=== PATIENT | male | born 1955 | race American Indian/Alaskan Native ===

== ENCOUNTER 2019-06-04 13:47 | Inpatient (IN) | payer OTHER ==
--- NOTE | 2019-06-04 14:01 | Event Note ---
ED Screening Note ED Screening Note: here the other night bph/urinary retention now freq urination and abd pain hr inc from pain PMH HTN BPH RX BP MED IN [place] NO CIG/ETOH/DRUGS This initial assessment/diagnostic orders/clinical plan/treatment(s) is/are subject to change based on patients health status, clinical progression and re-assessment by fellow clinical providers in the ED. Further treatment and workup at subsequent clinical providers discretion. Patient/guardian urged not to elope from the ED as their condition may be serious if not clinically assessed and managed. Initial orders include: ua labs reeval for curry
[2019-06-04 14:47] LABS: Bacteria,Urine 1+ /HPF (Negative); Bilirubin,Urine NEG (Negative); Blood,Urine SM (Negative); Color,Urine Straw (Yellow); Protein,Urine <15 mg/dL mg/dL (Negative); Urobilinogen,Urine < 2.0 mg/dL (<2.0)
[2019-06-04 14:49] LABS: RBC,Urine < 1.0 /HPF (0.0-6.0)
[2019-06-04 15:50] LABS: Hematocrit 41.4 % (35.5-45.6); Hemoglobin 14.6 gm/dl (11.8-15.2); Mean Corpuscular HGB Conc 35 % (32-34); Mean Corpuscular Volume 87 fl (84-94); Platelet Count 234 K/mm3 (140-440); Red Blood Count 4.74 M/mm3 (3.65-5.03); Red Cell Distribution Width 13.2 % (13.2-15.2)
[2019-06-04 15:55] LABS: Calcium 8.9 mg/dL (8.4-10.2)
[2019-06-04 16:38] LABS: Creatinine,Urine 49.7 mg/dL (0.1-20.0)
--- NOTE | 2019-06-04 17:08 | Emergency Department Report ---
ED Abdominal Pain HPI - General Chief Complaint: Urogenital-Male Stated Complaint: URINE RETENTION Time Seen by Provider: 06/04/19 13:47 Source: patient Mode of arrival: Ambulatory Limitations: No Limitations - History of Present Illness Initial Comments: Patient is 63 years old male with history of hypertension and benign prostatic hypertrophy. Patient presented to the ER complaining of lower abdominal pain and distention, increased urinary frequency, urgency and dysuria for the last few days. Patient was seen here 3 days ago and diagnosed with UTI and possible prostatitis. Patient is stated by his symptoms is getting hoarse and last night he was unable to sleep at all. Patient creatinine was 0.9 and today 6.9. Bladder scan showed a 369 mL. With an obvious overflow incontinence patient is wearing a diaper now. Patient denied any fever or chills. Patient also denied any nausea or vomiting. MD Complaint: abdominal pain -: days(s) Location: suprapubic Severity: moderate Severity scale (0 -10): 2 Quality: fullness Consistency: constant Associated Symptoms: denies other symptoms - Related Data Previous Rx's Medication Instructions Recorded Last Taken Type Ciprofloxacin HCl [Ciprofloxacin 500 mg PO Q12HR 14 Days #28 tab 05/31/19 Unknown Rx TAB] Tamsulosin [Flomax] 0.4 mg PO QDAY 14 Days #14 cap 05/31/19 Unknown Rx Allergies Allergy/AdvReac Type Severity Reaction Status Date / Time No Known Allergies Allergy Unverified 05/31/19 17:49 ED Review of Systems ROS: Stated complaint: URINE RETENTION Other details as noted in HPI Comment: All other systems reviewed and negative Constitutional: denies: chills, fever Respiratory: denies: cough, orthopnea, shortness of breath, SOB with exertion, SOB at rest, wheezing Cardiovascular: denies: chest pain, palpitations Gastrointestinal: abdominal pain. denies: nausea, vomiting, diarrhea, constipation, hematemesis, melena, hematochezia Genitourinary: urgency, dysuria, frequency. denies: discharge, testicular pain, testicular mass Musculoskeletal: denies: arthralgia Neurological: denies: headache, weakness, numbness, paresthesias, confusion, abn ormal gait ED Past Medical Hx - Past Medical History Previous Medical History?: Yes Hx Hypertension: Yes Hx CVA: No Hx Heart Attack/AMI: No Hx Congestive Heart Failure: No Hx Diabetes: No Hx Deep Vein Thrombosis: No Hx Pulmonary Embolism: No Hx GERD: No Hx Liver Disease: No Hx Renal Disease: No Hx of Cancer: No Hx Sickle Cell Disease: No Hx Arthritis: No Hx Headaches / Migraines: No Hx Seizures: No Hx Kidney Stones: No Hx Psychiatric Treatment: No Hx Asthma: No Hx COPD: No Hx Tuberculosis: No Hx Dementia: No Hx HIV: No Additional medical history: History of prostatitis - Surgical History Past Surgical History?: No Hx Coronary Stent: No Hx Open Heart Surgery: No Hx Pacemaker: No Hx Internal Defibrillator: No Hx Cholecystectomy: No Hx Appendectomy: No Hx Breast Surgery: No - Social History Smoking Status: Never Smoker Substance Use Type: None - Medications Home Medications: Home Medications Medication Instructions Recorded Confirmed Last Taken Type Ciprofloxacin HCl [Ciprofloxacin 500 mg PO Q12HR 14 Days #28 tab 05/31/19 Unknown Rx TAB] Tamsulosin [Flomax] 0.4 mg PO QDAY 14 Days #14 cap 05/31/19 Unknown Rx ED Physical Exam - General Limitations: No Limitations General appearance: alert, in no apparent distress - Head Head exam: Present: atraumatic, normocephalic, normal inspection - Eye Eye exam: Present: normal appearance, PERRL - ENT ENT exam: Present: normal exam, normal orophraynx, mucous membranes moist - Neck Neck exam: Present: normal inspection, full ROM. Absent: tenderness, meningismus, lymphadenopathy, thyromegaly - Respiratory Respiratory exam: Present: normal lung sounds bilaterally - Cardiovascular Cardiovascular Exam: Present: tachycardia. Absent: systolic murmur, diastolic murmur - GI/Abdominal GI/Abdominal exam: Present: soft, tenderness (suprapubic), normal bowel sounds. Absent: distended, guarding, rebound, rigid, organomegaly, mass, bruit, pulsatile mass, hernia - Extremities Exam Extremities exam: Present: normal inspection, full ROM, normal capillary refill - Back Exam Back exam: Present: normal inspection, full ROM. Absent: CVA tenderness (R), CVA tenderness (L), muscle spasm, paraspinal tenderness, vertebral tenderness - Neurological Exam Neurological exam: Present: alert, oriented X3, CN II-XII intact, normal gait, reflexes normal - Psychiatric Psychiatric exam: Present: normal mood - Skin Skin exam: Present: warm, intact, normal color ED Course Vital Signs 06/04/19 06/04/19 06/04/19 13:51 16:07 16:58 Temperature 97.9 F Pulse Rate 121 H 113 H Respiratory 12 20 18 Rate Blood Pressure 143/98 Blood Pressure 162/96 [Right] O2 Sat by Pulse 96 98 99 Oximetry 06/04/19 18:02 Temperature Pulse Rate 96 H Respiratory 22 Rate Blood Pressure Blood Pressure 153/88 [Right] O2 Sat by Pulse 96 Oximetry ED Medical Decision Making - Lab Data Result diagrams: 06/04/19 15:24 06/04/19 15:24 - Medical Decision Making Patient is 63 years old male with history of hypertension and benign prostatic hypertrophy. Patient presented to the ER complaining of lower abdominal pain and distention, increased urinary frequency, urgency and dysuria for the last few days. Patient was seen here 3 days ago and diagnosed with UTI and possible prostatitis. Patient is stated by his symptoms is getting hoarse and last night he was unable to sleep at all. Patient creatinine was 0.9 and today 6.9. Bladder scan showed a 369 mL. With an obvious overflow incontinence patient is wearing a diaper now. Patient denied any fever or chills. Patient also denied any nausea or vomiting. Velazquez catheter immediately inserted with immediate retain MORE than 1 L. Patient stated that he is feeling much better. I discussed the patient is Dr. Trent from urology stated that he will follow up with the patient. I discussed the patient is Dr. Adams, he agreed to evaluate the patient. Critical Care Time: Yes Critical care time in (mins) excluding proc time.: 30 Critical care attestation.: If time is entered above; I have spent that time in minutes in the direct care of this critically ill patient, excluding procedure time. ED Disposition Clinical Impression: Acute renal failure, Obstructive uropathy Disposition: OP ADMIT IP TO THIS HOSP Is pt being admited?: Yes Condition: Stable Referrals: [facility] [Other] - 3-5 Days
--- NOTE | 2019-06-04 18:03 | Ultrasound Report ---
ULTRASOUND RENAL INDICATION: ABD PAIN, urinary frequency, lack of bladder control, pelvic pain COMPARISON: No relevant prior imaging study available. FINDINGS: RIGHT KIDNEY: Size: 11.5 cm. Echogenicity: Normal. Cortical thickness: Normal. Stones: None. Hydronephrosis: None. Cyst or mass: None. LEFT KIDNEY: Size: 11.8 cm. Echogenicity: Normal. Cortical thickness: Normal. Stones: None. Hydronephrosis: None. Cyst or mass: None. Urinary Bladder: No significant abnormality. Free Fluid: None. Additional Findings: None. IMPRESSION: No acute sonographic abnormality of the kidneys Signer Name: Michael Barr MD Signed: 06/04/2019 5:59 PM Workstation Name: [id number]
[2019-06-04 19:30] LABS: RBC,Urine < 1.0 /HPF (0.0-6.0)
--- NOTE | 2019-06-04 22:12 | History and Physical Report ---
History of Present Illness Date of examination: 06/04/19 History of present illness: 63-year-old man with a history of hypertension, BPH comes to the emergency room disease been unable to urinate since Sunday. Velazquez was placed in the ear, more than 1 L of urine was obtained Review of systems Constitutional: no weight loss, chills, fever Ears, eyes, nose, mouth and throat: no nasal congestion, no nasal discharge, no sinus pressure, no vision change, no red eye. Neck: No neck pain or rigidity. Cardiovascular: no palpitations, chest pain Respiratory: no cough, shortness of breath Gastrointestinal: no hematochezia, abdominal pain Genitourinary : no frequency , no hematuria Musculoskeletal: no joint swelling or muscle ache Integumentary: no rash, no pruritis Neurological: no parathesias, no focal weakness Endocrine: no cold or heat intolerance, no polyuria or polydipsia Hematologic/Lymphatic: no easy bruising, no easy bleeding, no gland swelling Allergic/Immunologic: no urticaria, no angioedema. PAST MEDICAL HISTORY:hypertension, BPH PAST SURGICAL HISTORY: None SOCIAL HISTORY: Denies alcohol, drugs, tobacco FAMILY HISTORY: Hypertension Medications and Allergies Allergies Allergy/AdvReac Type Severity Reaction Status Date / Time No Known Allergies Allergy Unverified 05/31/19 17:49 Home Medications Medication Instructions Recorded Confirmed Last Taken Type Ciprofloxacin HCl [Ciprofloxacin 500 mg PO Q12HR 14 Days #28 tab 05/31/19 06/05/19 06/04/19 Rx TAB] Tamsulosin [Flomax] 0.4 mg PO QDAY 14 Days #14 cap 05/31/19 06/05/19 06/04/19 Rx Exam - Physical Exam Narrative exam: General Apperance: The patient lying in bed, breathing comfortable HEENT: Normocephalic, atraumatic. Pupils equally round and reactive to light, EOMI, no sclericterus or JVD or thyromegaly or nodule. , no carotid bruit, mucous membranes moist, no exudate or erythema Heart: S1-S2, regular is rhythm Lungs: Clear to auscultation bilaterally, breathing comfortable Abdomen: Positive bowel sounds, soft, nontender, nondistended, no organomegaly Extremities: No edema cyanosis clubbing Skin: no rash, nodule, warm and dry Neuro: cranial nerves 2-12 intact, speech is fluent, motor/sensory intact - Constitutional Vitals: Temp Pulse Resp BP Pulse Ox 98.5 F 122 H 20 148/89 95 06/04/19 19:40 06/04/19 21:45 06/04/19 21:45 06/04/19 21:45 06/04/19 21:45 Results - Labs CBC & Chem 7: 06/05/19 04:01 06/06/19 04:48 Labs: Abnormal lab results 06/04/19 06/04/19 06/04/19 Range/Units 15:24 15:24 16:00 MCHC 35 H (32-34) % Sodium 128 L D (137-145) mmol/L Chloride 90.0 L (98-107) mmol/L BUN 59 H (9-20) mg/dL Creatinine 6.9 H D (0.8-1.5) mg/dL Glucose 112 H (75-100) mg/dL Phosphorus (2.5-4.5) mg/dL Urine Creatinine 49.7 H (0.1-20.0) mg/dL 06/04/19 Range/Units 16:08 MCHC (32-34) % Sodium (137-145) mmol/L Chloride (98-107) mmol/L BUN (9-20) mg/dL Creatinine (0.8-1.5) mg/dL Glucose (75-100) mg/dL Phosphorus 6.00 H (2.5-4.5) mg/dL Urine Creatinine (0.1-20.0) mg/dL Assessment and Plan renal Us reviewed Assessment Obstructive uropathy Acute renal failure hypertension BPH Plan Admit to medicine Start IV fluid, urology and renal consulted for the patient DVT prophylaxis
[2019-06-04] MEDS: NACL 0.9% 1000 ML 1,000 ML IV SCH (22:50)
[2019-06-04] MEDS ORDERED: ZOFRAN IV PRN (23:25)
[2019-06-04] MEDS ORDERED: PERCOCET 5/325 PO PRN (23:25)
[2019-06-04] MEDS ORDERED: SODIUM CHLORIDE FLUSH SYRINGE 10 ML IV PRN (23:25)
[2019-06-04] MEDS ORDERED: TYLENOL PO PRN (23:25)
[2019-06-05 05:00] LABS: Basophils % (Auto) 0.1 % (0.0-1.8); Eosinophils # (Auto) 0.1 K/mm3 (0.0-0.4); Eosinophils % (Auto) 0.8 % (0.0-4.3); Hematocrit 41.8 % (35.5-45.6); Hemoglobin 14.7 gm/dl (11.8-15.2); Lymphocytes # (Auto) 0.9 K/mm3 (1.2-5.4); Lymphocytes % (Auto) 10.8 % (13.4-35.0); Mean Corpuscular HGB Conc 35 % (32-34); Mean Corpuscular Volume 87 fl (84-94); Monocytes # (Auto) 1.1 K/mm3 (0.0-0.8); Monocytes % (Auto) 13.9 % (0.0-7.3); Platelet Count 286 K/mm3 (140-440); Red Blood Count 4.78 M/mm3 (3.65-5.03); Red Cell Distribution Width 13.5 % (13.2-15.2)
[2019-06-05 05:20] LABS: Albumin 3.6 g/dL (3.9-5); Calcium 9.1 mg/dL (8.4-10.2)
[2019-06-05] MEDS: NACL 0.9% 1000 ML 1,000 ML IV SCH (07:45)
[2019-06-05] MEDS ORDERED: D5W 1,000 ML IV SCH (08:00)
[2019-06-05] MEDS: SODIUM CHLORIDE FLUSH SYRINGE 10 ML IV SCH (09:23)
--- NOTE | 2019-06-05 09:58 | Consultation ---
History of Present Illness - Reason for Consult Consult date: 06/05/19 acute renal failure, hyponatremia - History of Present Illness The patient is 63 YO male with history significant for Hypertension and BPH who presented to [facility] ER complaining of lower abdominal pain, abd distention and unable to urinate for the past 4-5 days. He also reports urgency but not able to urinate. Patient was seen here 3 days prior and diagnosed with UTI and possible prostatitis. Patient reports that his symptoms has getten worse. Patient creatinine was 0.9 on 05/31 but increased to 6.9 yesterday. Bladder scan showed 369 mL. In the ED curry was inserted with immediate drainage of 1 Lt of urine. Patient is visiting from [facility] No h/o fever, chills, N, V, D, cp, sob, leg swelling or hematuria. Nephrology was consulted for further evaluation. Past History Past Medical History: hypertension, other (BPH) Medications and Allergies Allergies Allergy/AdvReac Type Severity Reaction Status Date / Time No Known Allergies Allergy Unverified 05/31/19 17:49 Home Medications Medication Instructions Recorded Confirmed Last Taken Type Ciprofloxacin HCl [Ciprofloxacin 500 mg PO Q12HR 14 Days #28 tab 05/31/19 06/05/19 06/04/19 Rx TAB] Tamsulosin [Flomax] 0.4 mg PO QDAY 14 Days #14 cap 05/31/19 06/05/19 06/04/19 Rx Active Meds: Active Medications Acetaminophen (Tylenol) 650 mg PO Q4H PRN PRN Reason: Pain MILD(1-3)/Fever >100.5/CONLEY Enoxaparin Sodium (Lovenox) 30 mg SUB-Q QDAY MORGAN Last Admin: 06/05/19 09:22 Dose: 30 mg Documented by: Dextrose (D5w) 1,000 mls @ 75 mls/hr IV DIRECT MORGAN Last Admin: 06/05/19 09:24 Dose: 75 mls/hr Documented by: Ondansetron HCl (Zofran) 4 mg IV Q4H PRN PRN Reason: Nausea And Vomiting Oxycodone/Acetaminophen (Percocet 5/325) 1 tab PO Q6H PRN PRN Reason: Pain, Moderate (4-6) Sodium Chloride (Sodium Chloride Flush Syringe 10 Ml) 10 ml IV BID [facility] Last Admin: 06/05/19 09:23 Dose: 10 ml Documented by: Sodium Chloride (Sodium Chloride Flush Syringe 10 Ml) 10 ml IV PRN PRN PRN Reason: LINE FLUSH Review of Systems Constitutional: no weight loss, no weight gain, no fever, no chills, no anorexia, no fatigue, no weakness Cardiovascular: high blood pressure, no chest pain, no orthopnea, no edema, no syncope, no lightheadedness, no shortness of breath, no leg edema Respiratory: no cough, no excessive sputum, no hemoptysis, no shortness of breath, no dyspnea on exertion Gastrointestinal: abdominal pain, no nausea, no vomiting, no diarrhea, no constipation, no melena, no hematochezia Genitourinary Male: dysuria, urinary frequency, urinary hesitancy, incontinence, urinary retention, no hematuria, no flank pain, no discharge, no kidney stones Rectal: no bleeding Musculoskeletal: no low back pain, no morning stiffness, no muscle weakness, no muscle cramps Integumentary: no rash, no wounds, no jaundice Neurological: no paralysis, no weakness, no numbness, no tingling, no seizures, no syncope, no convulsions, no aphasia, no change in speech, no change in mentation, no confusion, no memory loss Psychiatric: no anxiety, no memory loss, no depression Exam - Vital Signs Vital signs: Vital Signs Temp Pulse Resp BP Pulse Ox 97.9 F 121 H 12 143/98 96 06/04/19 13:51 06/04/19 13:51 06/04/19 13:51 06/04/19 13:51 06/04/19 13:51 - General Appearance General appearance: well-developed, well-nourished, appears stated age, other (no distress) EENT: ATNC, PERRL, mucous membranes moist, hearing intact, vision intact Neck: Present: neck supple, trachea midline Respiratory: Clear to Ascultation Heart: regular, S1S2, no murmurs Gastrointestinal: Present: normoactive bowel sounds, other (curry catheter). Absent: tenderness, distended Integumentary: no rash, warm and dry Neurologic: no focal deficit, no asterixis, alert and oriented x3 Musculoskeletal: Present: other (no edema) Results - Lab Results 06/05/19 04:01 06/05/19 19:44 Most recent lab results Calcium 9.1 mg/dL (8.4-10.2) 06/05/19 04:01 Phosphorus 6.00 mg/dL (2.5-4.5) H 06/04/19 16:08 Magnesium 2.70 mg/dL (1.7-2.3) H 06/05/19 04:01 49.7 mg/dL (0.1-20.0) H 06/04/19 16:00 21 mmol/L 06/04/19 16:00 Assessment and Plan 1. Acute kidney injury: LULU in the setting of bladder outlet obstruction. Renal US was negative for hydro. Renal function is improving. Monitor renal function. Avoid nephrotoxic agents. Meds dosage based on GFR. 2. FEN: Continue IV fluids. IV fluids were changed appropriately based on the sodium level. Monitor lytes. 3. BPH with bladder outlet obstruction: S/p Curry catheter.
[2019-06-05] MEDS ORDERED: LOVENOX SUB-Q SCH (10:00)
--- NOTE | 2019-06-05 11:21 | Progress Note ---
Assessment and Plan Assessment and plan: Acute kidney injury due to obstructive uropathy patient admitted Cr improving now 3.0 from 6.9 Nephrology and Urology following Urinary retention curry inserted Hypernatremia. Recheck in am BPH Hypertension Monitor BP Full code status History Interval history: Abdominal pain urinary retention ` Hospitalist Physical - Physical exam Narrative exam: Gen: Not in acute distress, sitting up in bed, HEENT: Normocephalic, atraumatic Neck: supple, no JVD Heart: S1 and S2 reg, no murmurs, rubs or gallop Lungs: Clear, no crackles or wheeze Abd: soft, non tender, non distended, normal BS Ext:no edema, no clubbing or cyanosis ; curry in place Neuro: Awake,alert,oriented,moves all extremities - Constitutional Vitals: Temp Pulse Resp BP Pulse Ox 99.4 F 101 H 24 143/77 94 06/05/19 08:54 06/05/19 08:54 06/05/19 08:54 06/05/19 08:54 06/05/19 08:54 Results - Labs CBC & Chem 7: 06/05/19 04:01 06/05/19 04:01 Labs: Laboratory Last Values WBC 8.2 K/mm3 (4.5-11.0) 06/05/19 04:01 RBC 4.78 M/mm3 (3.65-5.03) 06/05/19 04:01 Hgb 14.7 gm/dl (11.8-15.2) 06/05/19 04:01 Hct 41.8 % (35.5-45.6) 06/05/19 04:01 MCV 87 fl (84-94) 06/05/19 04:01 MCH 31 pg (28-32) 06/05/19 04:01 MCHC 35 % (32-34) H 06/05/19 04:01 RDW 13.5 % (13.2-15.2) 06/05/19 04:01 Plt Count 286 K/mm3 (140-440) 06/05/19 04:01 Lymph % (Auto) 10.8 % (13.4-35.0) L 06/05/19 04:01 [place] % (Auto) 13.9 % (0.0-7.3) H 06/05/19 04:01 Eos % (Auto) 0.8 % (0.0-4.3) 06/05/19 04:01 Baso % (Auto) 0.1 % (0.0-1.8) 06/05/19 04:01 Lymph # 0.9 K/mm3 (1.2-5.4) L 06/05/19 04:01 [place] # 1.1 K/mm3 (0.0-0.8) H 06/05/19 04:01 Eos # 0.1 K/mm3 (0.0-0.4) 06/05/19 04:01 Baso # 0.0 K/mm3 (0.0-0.1) 06/05/19 04:01 Seg Neutrophils % 74.4 % (40.0-70.0) H 06/05/19 04:01 Seg Neutrophils # 6.1 K/mm3 (1.8-7.7) 06/05/19 04:01 Sodium 146 mmol/L (137-145) H D 06/05/19 04:01 Potassium 5.0 mmol/L (3.6-5.0) 06/05/19 04:01 Chloride 107.9 mmol/L (98-107) H 06/05/19 04:01 Carbon Dioxide 25 mmol/L (22-30) 06/05/19 04:01 18 mmol/L 06/05/19 04:01 BUN 37 mg/dL (9-20) H 06/05/19 04:01 3.0 mg/dL (0.8-1.5) H D 06/05/19 04:01 Estimated GFR 26 ml/min 06/05/19 04:01 12 % 06/05/19 04:01 Glucose 114 mg/dL (75-100) H 06/05/19 04:01 283 Mosm/kg 06/04/19 16:24 Calcium 9.1 mg/dL (8.4-10.2) 06/05/19 04:01 Phosphorus 6.00 mg/dL (2.5-4.5) H 06/04/19 16:08 Magnesium 2.70 mg/dL (1.7-2.3) H 06/05/19 04:01 0.60 mg/dL (0.1-1.2) 06/05/19 04:01 AST 19 units/L (5-40) 06/05/19 04:01 ALT 21 units/L (7-56) 06/05/19 04:01 65 units/L (35-129) 06/05/19 04:01 7.1 g/dL (6.3-8.2) 06/05/19 04:01 3.6 g/dL (3.9-5) L 06/05/19 04:01 1.0 % 06/05/19 04:01 Straw (Yellow) 06/04/19 14:20 Clear (Clear) 06/04/19 14:20 5.0 (5.0-7.0) 06/04/19 14:20 Ur Specific [place] 1.004 (1.003-1.030) 06/04/19 14:20 <15 mg/dl mg/dL (Negative) 06/04/19 14:20 Neg mg/dL (Negative) 06/04/19 14:20 Neg mg/dL (Negative) 06/04/19 14:20 Sm (Negative) 06/04/19 14:20 Neg (Negative) 06/04/19 14:20 Neg (Negative) 06/04/19 14:20 < 2.0 mg/dL (<2.0) 06/04/19 14:20 Ur Leukocyte Esterase Neg (Negative) 06/04/19 14:20 1.0 /HPF (0.0-6.0) 06/04/19 Unknown < 1.0 /HPF (0.0-6.0) 06/04/19 Unknown U Epithel Cells (Auto) < 1.0 /HPF (0-13.0) 06/04/19 14:20 1+ /HPF (Negative) 06/04/19 14:20 152 Mosm/kg 06/04/19 16:00 49.7 mg/dL (0.1-20.0) H 06/04/19 16:00 21 mmol/L 06/04/19 16:00 244 06/04/19 16:00 Active Medications - Current Medications Current Medications: Generic Name Dose Route Start Last Admin Trade Name Freq PRN Reason Stop Dose Admin Acetaminophen 650 mg 06/04/19 23:25 Tylenol PO Q4H PRN Pain MILD(1-3)/Fever >100.5/CONLEY Enoxaparin Sodium 30 mg 06/05/19 10:00 06/05/19 09:22 Lovenox SUB-Q 30 mg QDAY MORGAN Administration Dextrose 1,000 mls @ 75 mls/hr 06/05/19 08:00 06/05/19 09:24 D5w IV 75 mls/hr DIRECT MORGAN Administration Ondansetron HCl 4 mg 06/04/19 23:25 Zofran IV Q4H PRN Nausea And Vomiting Oxycodone/Acetaminophen 1 tab 06/04/19 23:25 Percocet 5/325 PO Q6H PRN Pain, Moderate (4-6) Sodium Chloride 10 ml 06/05/19 10:00 06/05/19 09:23 Sodium Chloride Flush Syringe 10 Ml IV 10 ml BID MORGAN Administration Sodium Chloride 10 ml 06/04/19 23:25 Sodium Chloride Flush Syringe 10 Ml IV PRN PRN LINE FLUSH
--- NOTE | 2019-06-05 14:53 | Consultation ---
History of Present Illness - Reason for Consult Consult date: 06/05/19 - History of Present Illness new to our service Patient is 63 years old male with history of hypertension and benign prostatic hypertrophy. Patient presented to the ER complaining of lower abdominal pain and distention, increased urinary frequency, urgency and dysuria for the last few days. Patient was seen here 3 days ago and diagnosed with UTI and possible prostatitis. Patient is stated by his symptoms is getting hoarse and last night he was unable to sleep at all. Patient creatinine was 0.9 and today 6.9. Michael dder scan showed a 369 mL. With an obvious overflow incontinence patient is wearing a diaper now. Patient denied any fever or chills. Patient also denied any nausea or vomiting. Curry placed 1L+ padmaja urine family at bedside abd soft curry clear urine renal us normal A/P bph flomax 1qd home with curry urodynamics as outpt Medications and Allergies Allergies Allergy/AdvReac Type Severity Reaction Status Date / Time No Known Allergies Allergy Unverified 05/31/19 17:49 Home Medications Medication Instructions Recorded Confirmed Last Taken Type Ciprofloxacin HCl [Ciprofloxacin 500 mg PO Q12HR 14 Days #28 tab 05/31/19 06/05/19 06/04/19 Rx TAB] Tamsulosin [Flomax] 0.4 mg PO QDAY 14 Days #14 cap 05/31/19 06/05/19 06/04/19 Rx Active Meds: Active Medications Acetaminophen (Tylenol) 650 mg PO Q4H PRN PRN Reason: Pain MILD(1-3)/Fever >100.5/CONLEY Enoxaparin Sodium (Lovenox) 30 mg SUB-Q QDAY [facility] Last Admin: 06/05/19 09:22 Dose: 30 mg Documented by: Dextrose (D5w) 1,000 mls @ 75 mls/hr IV DIRECT [facility] Last Admin: 06/05/19 09:24 Dose: 75 mls/hr Documented by: Ondansetron HCl (Zofran) 4 mg IV Q4H PRN PRN Reason: Nausea And Vomiting Oxycodone/Acetaminophen (Percocet 5/325) 1 tab PO Q6H PRN PRN Reason: Pain, Moderate (4-6) Sodium Chloride (Sodium Chloride Flush Syringe 10 Ml) 10 ml IV BID [facility] Last Admin: 06/05/19 09:23 Dose: 10 ml Documented by: Sodium Chloride (Sodium Chloride Flush Syringe 10 Ml) 10 ml IV PRN PRN PRN Reason: LINE FLUSH Tamsulosin HCl (Flomax) 0.4 mg PO QDAY MORGAN Exam - Constitutional Vitals: Temp Pulse Resp BP Pulse Ox 99.4 F 101 H 24 143/77 97 06/05/19 08:54 06/05/19 08:54 06/05/19 08:54 06/05/19 08:54 06/05/19 14:37 Results - Labs CBC & Chem 7: 06/05/19 04:01 06/05/19 04:01 Labs: Abnormal lab results 06/04/19 06/04/19 06/04/19 Range/Units 15:24 15:24 16:00 MCHC 35 H (32-34) % Lymph % (Auto) (13.4-35.0) % [place] % (Auto) (0.0-7.3) % Lymph # (1.2-5.4) K/mm3 [place] # (0.0-0.8) K/mm3 Seg Neutrophils % (40.0-70.0) % Sodium 128 L D (137-145) mmol/L Chloride 90.0 L (98-107) mmol/L BUN 59 H (9-20) mg/dL Creatinine 6.9 H D (0.8-1.5) mg/dL Glucose 112 H (75-100) mg/dL Phosphorus (2.5-4.5) mg/dL Magnesium (1.7-2.3) mg/dL Albumin (3.9-5) g/dL Urine Creatinine 49.7 H (0.1-20.0) mg/dL 06/04/19 06/05/19 06/05/19 Range/Units 16:08 04:01 04:01 MCHC 35 H (32-34) % Lymph % (Auto) 10.8 L (13.4-35.0) % [place] % (Auto) 13.9 H (0.0-7.3) % Lymph # 0.9 L (1.2-5.4) K/mm3 [place] # 1.1 H (0.0-0.8) K/mm3 Seg Neutrophils % 74.4 H (40.0-70.0) % Sodium 146 H D (137-145) mmol/L Chloride 107.9 H (98-107) mmol/L BUN 37 H (9-20) mg/dL Creatinine 3.0 H D (0.8-1.5) mg/dL Glucose 114 H (75-100) mg/dL Phosphorus 6.00 H (2.5-4.5) mg/dL Magnesium 2.70 H (1.7-2.3) mg/dL Albumin 3.6 L (3.9-5) g/dL Urine Creatinine (0.1-20.0) mg/dL
[2019-06-05 20:34] LABS: Calcium 8.6 mg/dL (8.4-10.2)
[2019-06-05] MEDS ORDERED: NACL 0.45% 1000 ML 1,000 ML IV SCH (22:00)
[2019-06-06 05:46] LABS: BUN/Creatinine Ratio 12; Blood Urea Nitrogen 15 mg/dL (9-20); Calcium 8.8 mg/dL (8.4-10.2); Hemolysis Index 13
--- NOTE | 2019-06-06 09:33 | Progress Note ---
Assessment and Plan 1. Acute kidney injury: LULU in the setting of bladder outlet obstruction. Renal US was negative for hydro. Renal function has improved. Monitor renal function. Avoid nephrotoxic agents. Meds dosage based on GFR. 2. FEN: Continue IV fluids. IV fluids were changed appropriately based on the sodium level. Monitor lytes. 3. BPH with bladder outlet obstruction: S/p Curry catheter. Will sign off. Please call with any questions. Subjective Date of service: 06/06/19 Interval history: Patient is feeling better. Objective - Vital Signs Vital signs: Vital Signs - 12hr 06/05/19 06/05/19 23:00 23:58 Temperature 98.7 F Pulse Rate 81 70 Respiratory 16 Rate Blood Pressure 131/82 O2 Sat by Pulse 99 Oximetry - General Appearance General appearance: well-developed, well-nourished, appears stated age, other (no distress) EENT: ATNC, PERRL, hearing intact, vision intact Neck: supple Respiratory: Present: Clear to Ascultation Cardiology: regular, S1S2, no murmurs Gastrointestinal: normoactive bowel sounds, no tenderness, no distended, other (curry catheter) Integumentary: no rash, warm and dry Neurologic: no focal deficit, no asterixis, alert and oriented x3 Musculoskeletal: other (no edema) - Lab 06/05/19 04:01 06/06/19 04:48 Most recent lab results Calcium 8.8 mg/dL (8.4-10.2) 06/06/19 04:48 Phosphorus 2.40 mg/dL (2.5-4.5) L D 06/06/19 04:48 Magnesium 2.70 mg/dL (1.7-2.3) H 06/05/19 04:01 49.7 mg/dL (0.1-20.0) H 06/04/19 16:00 21 mmol/L 06/04/19 16:00 Medications & Allergies - Medications Allergies/Adverse Reactions: Allergies No Known Allergies Allergy (Unverified 05/31/19 17:49) Home Medications: Home Medications Medication Instructions Recorded Confirmed Last Taken Type Ciprofloxacin HCl [Ciprofloxacin 500 mg PO Q12HR 14 Days #28 tab 05/31/1906/04/19 Rx TAB] Tamsulosin [Flomax] 0.4 mg PO QDAY 14 Days #14 cap 05/31/19 06/05/19 06/04/19 Rx Active Medications: Generic Name Dose Route Start Last Admin Trade Name Freq PRN Reason Stop Dose Admin Acetaminophen 650 mg 06/04/19 23:25 Tylenol PO Q4H PRN Pain MILD(1-3)/Fever >100.5/CONLEY Enoxaparin Sodium 40 mg 06/06/19 10:00 Lovenox SUB-Q QDAY@1000 MORGAN Sodium Chloride 1,000 mls @ 50 mls/hr 06/05/19 22:00 06/05/19 23:13 Nacl 0.45% 1000 Ml IV 50 mls/hr DIRECT MORGAN Administration Ondansetron HCl 4 mg 06/04/19 23:25 Zofran IV Q4H PRN Nausea And Vomiting Oxycodone/Acetaminophen 1 tab 06/04/19 23:25 06/05/19 17:58 Percocet 5/325 PO 1 tab Q6H PRN Administration Pain, Moderate (4-6) Potassium Phos/Sodium Phos 1 each 06/06/19 10:00 Phos-Nak PO 06/06/19 10:01 ONCE ONE Sodium Chloride 10 ml 06/05/19 10:00 06/05/19 09:23 Sodium Chloride Flush Syringe 10 Ml IV 10 ml BID MORGAN Administration Sodium Chloride 10 ml 06/04/19 23:25 Sodium Chloride Flush Syringe 10 Ml IV PRN PRN LINE FLUSH Tamsulosin HCl 0.4 mg 06/06/19 10:00 Flomax PO QDAY MORGAN
[2019-06-06] MEDS: SODIUM CHLORIDE FLUSH SYRINGE 10 ML IV SCH (09:37)
[2019-06-06] MEDS ORDERED: PHOS-NAK PO ONE (10:00)
[2019-06-06] MEDS ORDERED: LOVENOX SUB-Q SCH (10:00)
[2019-06-06] MEDS ORDERED: FLOMAX PO SCH (10:00)
--- NOTE | 2019-06-06 11:18 | Discharge Summary ---
Providers - Providers Date of Admission: 06/04/19 22:10 Date of discharge: 06/06/19 Attending physician: JOSSE POPE 06/04/19 18:59 Consult to Physician [CONS] Stat Comment: Consulting Provider: DOUG TRENT Physician Instructions: Reason For Exam: acute renal area secondary to obstructive uropathy 06/04/19 19:20 Consult to Physician [CONS] Stat Comment: Dr. Acosta spoke with Dr. Knutson @ [phone] Consulting Provider: KRISTEL KNUTSON Physician Instructions: Reason For Exam: acute renal failure, obstructive uropathy Hospitalization Condition: Fair Hospital course: Patient is 63-year-old man with a history of hypertension, BPH comes to the emergency room with complaint of unable to urinate . He was seen and evaluated in ED. Curry catheter was placed and more than 1 L of urine was obtained. Labs show Cr 6.9. he was admitted, evaluated by Urology and Nephrology. After curry placed, by next day Cr 3.0 and by following day normal at 1.3. he was then discharged home with curry to follow as outpatient. Acute kidney injury due to obstructive uropathy patient admitted Cr improving to normal 1.3 in few days. Urinary retention curry inserted Hypernatremia. Recheck in am BPH Hypertension Monitor BP Full code status Total time spent on discharge, 33 mins Disposition: DC-01 TO HOME OR SELFCARE - Discharge Diagnoses (1) LULU (acute kidney injury) Status: Acute (2) ATN (acute tubular necrosis) Status: Acute (3) Obstructive uropathy Status: Acute (4) HTN (hypertension) Status: Acute (5) BPH (benign prostatic hyperplasia) Status: Acute Core Measure Documentation - Palliative Care Palliative Care/ Comfort Measures: Not Applicable - Core Measures Any of the following diagnoses?: none Exam - Constitutional Vitals: Temp Pulse Resp BP Pulse Ox 98.7 F 70 19 131/82 99 06/05/19 23:58 06/06/19 10:00 06/06/19 10:00 06/05/19 23:58 06/06/19 10:00 Plan Activity: no restrictions Diet: low fat, low cholesterol, low salt Special Instructions: home health RN Additional Instructions: 1.Follow up with PCP or [facility] in 1 week. 2.Home with curry and leg bag,. 3.Follow up with Dr. Trent in 3-5 days Follow up with: [facility] [Other] - 3-5 Days
--- NOTE | 2019-06-06 14:19 | Vascular Lab Report ---
DUPLEX DOPPLER LOWER EXTREMITY VEINS, LEFT INDICATION: Left lower extremity pain for one week. TECHNIQUE: Duplex doppler imaging was performed through the veins of the left lower extremity using venous compression and other maneuvers. COMPARISON: No relevant prior imaging study available. FINDINGS: Left Common femoral vein: Negative. Left Superficial femoral vein: Negative. Left Popliteal vein: Negative. Left Calf veins: Negative. Additional findings: None.. IMPRESSION: No sonographic evidence for DVT in the left lower extremity. Signer Name: Daniele Jonas Jr, MD Signed: 06/06/2019 2:15 PM Workstation Name: [id number]
[2019-06-06 18:08] VITALS: BP 134/88
== END 2019-06-06 20:31 | disposition home or self-care (01) | DRG 683 ==
LOC: ED 13:47 → 4A 22:10
PROVIDERS: ADMIT Internal Medicine; ATTEND Internal Medicine
DX: N17.9 Acute kidney failure, unspecified (principal); E87.0 Hyperosmolality and hypernatremia; N40.0 Benign prostatic hyperplasia without lower urinary tract symptoms; N13.9 Obstructive and reflux uropathy, unspecified; I10 Essential (primary) hypertension; Z82.49 Family history of ischemic heart disease and other diseases of the circulatory system; R33.9 Retention of urine, unspecified
CPT/HCPCS: 36415; 76770; 80048; 80053; 81001; 81015; 82570; 83735; 83930; 83935; 84100; 84300; 84520; 85025; 85027; 87086; 96372; 99291; G0378; J1650; J7030; J7070

== ENCOUNTER 2019-06-10 12:17 | Emergency (ER) | payer SELFPAY ==
[2019-06-10 12:27] VITALS: BP 160/106
--- NOTE | 2019-06-10 12:27 | Event Note ---
ED Screening Note Date of service: 06/10/19 Time: 12:24 ED Screening Note: Patient is 63 y.o. M. that presents to the ER for Velazquez catheter removal. Patient states he tired to make an appointment with a urologist and appointment is next month. He is returning to [place] on Sunday and need to have the Velazquez removed. This initial assessment/diagnostic orders/clinical plan/treatment(s) is/are subject to change based on patients health status, clinical progression and re- assessment by fellow clinical providers in the ED. Further treatment and workup at subsequent clinical providers discretion. Patient/guardian urged not to elope from the ED as their condition may be serious if not clinically assessed and managed. Initial orders include: Main ED
--- NOTE | 2019-06-10 14:12 | Emergency Department Report ---
ED General Adult HPI - General Chief complaint: Urogenital-Male Stated complaint: URINE BAG REMOVE Time Seen by Provider: 06/10/19 12:24 Source: patient Mode of arrival: Ambulatory Limitations: No Limitations - History of Present Illness Initial comments: Patient presents to the emergency department to have Velazquez removed. Upon obtaining history from the patient was discovered and was discharged on the of this month with a Velazquez in place due to BPH but instead of the patient getting a leg bag and was discharged from the whole Velazquez bag. The reasoning for official morning the Velazquez removed this because he's not comfortable carrying a bag around. Patient I will obtain an appointment with urologist upon discharge. The patient returns back to [place] on Sunday and will light the Velazquez removed. Improves with: none Worsens with: none Associated Symptoms: denies other symptoms Treatments Prior to Arrival: none - Related Data Previous Rx's Medication Instructions Recorded Last Taken Type Ciprofloxacin HCl [Ciprofloxacin 500 mg PO Q12HR 14 Days #28 tab 05/31/19 06/04/19 Rx TAB] Tamsulosin [Flomax] 0.4 mg PO QDAY 14 Days #14 cap 05/31/19 06/04/19 Rx Allergies Allergy/AdvReac Type Severity Reaction Status Date / Time No Known Allergies Allergy Verified 06/10/19 12:19 ED Review of Systems ROS: Stated complaint: URINE BAG REMOVE Other details as noted in HPI Comment: All other systems reviewed and negative Constitutional: denies: chills, fever Eyes: denies: eye pain, eye discharge, vision change ENT: denies: ear pain, throat pain Respiratory: denies: cough, shortness of breath, wheezing Cardiovascular: denies: chest pain, palpitations Endocrine: no symptoms reported Gastrointestinal: denies: abdominal pain, nausea, diarrhea Genitourinary: denies: urgency, dysuria Musculoskeletal: denies: back pain, joint swelling, arthralgia Skin: denies: rash, lesions Neurological: denies: headache, weakness, paresthesias Psychiatric: denies: anxiety, depression Hematological/Lymphatic: denies: easy bleeding, easy bruising ED Past Medical Hx - Past Medical History Hx Hypertension: Yes Hx CVA: No Hx Heart Attack/AMI: No Hx Congestive Heart Failure: No Hx Diabetes: No Hx Deep Vein Thrombosis: No Hx Pulmonary Embolism: No Hx GERD: No Hx Liver Disease: No Hx Renal Disease: No Hx Sickle Cell Disease: No Hx Arthritis: No Hx Headaches / Migraines: No Hx Seizures: No Hx Kidney Stones: No Hx Psychiatric Treatment: No Hx Asthma: No Hx COPD: No Hx Tuberculosis: No Hx Dementia: No Hx HIV: No Additional medical history: History of prostatitis - Surgical History Hx Coronary Stent: No Hx Open Heart Surgery: No Hx Pacemaker: No Hx Internal Defibrillator: No Hx Cholecystectomy: No Hx Appendectomy: No Hx Breast Surgery: No - Social History Smoking Status: Never Smoker - Medications Home Medications: Home Medications Medication Instructions Recorded Confirmed Last Taken Type Ciprofloxacin HCl [Ciprofloxacin 500 mg PO Q12HR 14 Days #28 tab 05/31/19 06/05/19 06/04/19 Rx TAB] Tamsulosin [Flomax] 0.4 mg PO QDAY 14 Days #14 cap 05/31/19 06/05/19 06/04/19 Rx ED Physical Exam - General Limitations: No Limitations General appearance: alert, in no apparent distress - Head Head exam: Present: atraumatic, normocephalic - Eye Eye exam: Present: normal appearance, PERRL, EOMI - ENT ENT exam: Present: mucous membranes moist - Neck Neck exam: Present: normal inspection - Respiratory Respiratory exam: Present: normal lung sounds bilaterally. Absent: respiratory distress - Cardiovascular Cardiovascular Exam: Present: regular rate, normal rhythm. Absent: systolic murmur, diastolic murmur, rubs, gallop - GI/Abdominal GI/Abdominal exam: Present: soft, normal bowel sounds - Rectal Rectal exam: Present: deferred - exam: Present: other (Velazquez in place) - Extremities Exam Extremities exam: Present: normal inspection - Back Exam Back exam: Present: normal inspection - Neurological Exam Neurological exam: Present: alert, oriented X3 - Psychiatric Psychiatric exam: Present: normal affect, normal mood - Skin Skin exam: Present: warm, dry, intact, normal color. Absent: rash ED Course Vital Signs 06/10/19 12:25 Temperature 97.7 F Pulse Rate 107 H Respiratory 17 Rate Blood Pressure 160/106 [Left] O2 Sat by Pulse 97 Oximetry ED Medical Decision Making - Medical Decision Making Stress with patient about the plan of action besides removing the Velazquez. Discussed with patient the need to place a leg Velazquez bag which he could travel to [place]. At that time the patient states he'll be able to follow with urologist and [facility]. Critical care attestation.: If time is entered above; I have spent that time in minutes in the direct care of this critically ill patient, excluding procedure time. ED Disposition Clinical Impression: Velazquez catheter problem Disposition: TO HOME OR SELFCARE Is pt being admited?: No Does the pt Need Aspirin: No Condition: Stable Instructions: Velazquez Catheter Placement and Care (ED) Additional Instructions: return if worse Referrals: JHON SOW MD [Primary Care Provider] - 3-5 Days [facility] [Provider Group] - 3-5 Days [facility] [Provider Group] - 3-5 Days Time of Disposition: 14:12
== END 2019-06-10 14:32 | disposition home or self-care (01) ==
LOC: ED 12:17
DX: T83.098A Other mechanical complication of other urinary catheter, initial encounter (principal); I10 Essential (primary) hypertension; Y92.89 Other specified places as the place of occurrence of the external cause
CPT/HCPCS: 51702